=== PATIENT | male | born 1965 | race Caucasian/White ===

== ENCOUNTER 2018-02-08 02:41 | Emergency (ER) | payer OTHER ==
[~2018-02-08] VITALS: Ht 182.9 cm; Wt 130.2 kg
[~2018-02-08 02:41] MED LIST: CRUTCH4 USE; GLIP5ER; HYDACE5 PO; HYDACE5325 PO; METF500; NAPR500 PO; PHENA200 PO; RXHYD5325 PO; SULTRIDS PO; VARE1
[2018-02-08] MEDS ORDERED: Cleocin HCl150 MG PO (03:11)
== END 2018-02-08 03:36 | disposition home or self-care (01) ==
LOC: ER 02:41
DX: K02.9 Dental caries, unspecified (principal); E11.9 Type 2 diabetes mellitus without complications; F17.200 Nicotine dependence, unspecified, uncomplicated; Z79.84 Long term (current) use of oral hypoglycemic drugs
CPT/HCPCS: 96372; 99282; J1885

== ENCOUNTER 2021-05-26 21:04 | Emergency (ER) | payer OTHER ==
[~2021-05-26] VITALS: Ht 182.9 cm; Wt 84.8 kg
[~2021-05-26 21:04] MED LIST changes: +Cleocin HCl150 MG PO
== END 2021-05-26 22:17 | disposition home or self-care (01) ==
LOC: ER 21:04
DX: S61.211A Laceration without foreign body of left index finger without damage to nail, initial encounter (principal); E11.9 Type 2 diabetes mellitus without complications; F17.200 Nicotine dependence, unspecified, uncomplicated; Z79.84 Long term (current) use of oral hypoglycemic drugs; W45.8XXA Other foreign body or object entering through skin, initial encounter
CPT/HCPCS: 12001; 99282-25